=== PATIENT | male | born 1935 | race Caucasian/White ===

== ENCOUNTER → 2016-06-15 | Outpatient (CLI) | payer MEDICARE, BC | END | disposition home or self-care (01) | LOC: PCVCIMAG 13:34 | PROVIDERS: ATTEND Internal Medicine Cardiovascular Disease | DX: I65.23 Occlusion and stenosis of bilateral carotid arteries (principal); I25.10 Atherosclerotic heart disease of native coronary artery without angina pectoris; E78.4 Other hyperlipidemia; I10 Essential (primary) hypertension; I25.5 Ischemic cardiomyopathy; Z86.79 Personal history of other diseases of the circulatory system | CPT/HCPCS: 80061; 93005; 93880; G0463 ==

== ENCOUNTER → 2017-05-17 | Outpatient (CLI) | payer MEDICARE, BC | END | disposition home or self-care (01) | LOC: PCVCIMAG 13:00 | DX: I65.21 Occlusion and stenosis of right carotid artery (principal) | CPT/HCPCS: 93880 ==

== ENCOUNTER → 2018-02-02 | Outpatient (CLI) | payer MEDICARE, BC ==
--- NOTE | 2018-02-02 12:40 | PCVCIMAG ---
EXAM: BILATERAL CAROTID DUPLEX INDICATION: Carotid Occlusive Disease. FINDINGS: Doppler Measurements (centimeters per second): RIGHT: Peak CCA-72, Peak ECA-115, Diastolic ICA-21, Peak ICA-188, ICA/CCA Ratio-2.3. LEFT: Peak CCA-92, Peak ECA-132, Diastolic ICA-20, Peak ICA-118, ICA/CCA Ratio-1.2. RIGHT CAROTID: The carotid bulb has moderate plaque. The proximal internal carotid artery shows 60-70% stenosis. The common carotid artery shows no significant stenosis. The external carotid artery shows no significant stenosis. LEFT CAROTID: The carotid bulb has no significant plaque. The proximal internal carotid artery shows no significant stenosis. The common carotid artery shows no significant stenosis. The external carotid artery shows 40% stenosis. Antegrade flow in both vertebral arteries. IMPRESSION: 60-70% stenosis of the right internal carotid artery with moderate plaque. No significant stenosis of the left internal carotid artery with no significant plaque. No change since May 2017 study. LOC:[id number]
== END | disposition home or self-care (01) ==
LOC: PCVCCLINIC 11:40
PROVIDERS: ATTEND Internal Medicine Cardiovascular Disease
DX: I65.23 Occlusion and stenosis of bilateral carotid arteries (principal); I25.10 Atherosclerotic heart disease of native coronary artery without angina pectoris; I25.5 Ischemic cardiomyopathy; I48.0 Paroxysmal atrial fibrillation; I73.9 Peripheral vascular disease, unspecified; E78.49 Other hyperlipidemia; E78.00 Pure hypercholesterolemia, unspecified; F17.210 Nicotine dependence, cigarettes, uncomplicated; I10 Essential (primary) hypertension; Z79.82 Long term (current) use of aspirin
CPT/HCPCS: 36415; 80061; 93005; 93880; G0463

== ENCOUNTER → 2018-05-24 | Outpatient (CLI) | payer MEDICARE, BC ==
[~2018-05-24] MED LIST: REGADENOSON 0.4 MG/5 ML DISP.SYRIN. IV ONE
--- NOTE | 2018-05-24 12:22 | PCVCIMAG ---
APPROVED REPORT Imaging Protocol: Rest Tc-99m/Stress Tc-99m 1 day Study performed: 05/24/2018 09:43:06 Indication: CAD Patient Location: Out-Patient Stress Nurse: Aniya Gaona RN, Aniya Gaona RN PA Tech:Oneyda Brandon [facility] Ht: 5 ft 11 in Wt: 155 lbs BSA: 1.89 m2 HR: 57 bpm BP: 184/75 mmHg BMI: 21.61 Medical History Medical History: Hyperlipidemia, CAD, PVD, Current Smoker Allergies: Demerol, Clinadmycin Cardiac Risk Factors: Age Pretest Chest Pain Characteristics: No chest pain Resting Data Rest SPECT myocardial perfusion imaging was performed in supine position 45 minutes following the intravenous injection of 10.5 mCi of Tc-99m Sestamibi. Time of rest injection: 09 Date: 05/24/2018 Administration Route: IV Administration Site: Right AC Pharmacologic Stress Pharmacologic stress test was performed by injecting Regadenoson 0.4 mg IV push over 10-15 seconds immediately followed by the intravenous injection of 32.8 mCi of Tc-99m Sestamibi. Time of stress injection: 1045 Date: 05/24/2018 Administration Route: IV Administration Site: Right AC Gated Stress SPECT was performed 45 minutes after stress injection. The images were gated to evaluate regional wall motion and calculate left ventricular ejection fraction. Stress Test Details Stress Test: Pharmacologic stress testing performed using 0.4 mg of regadenoson per 5 mL given IV over 10 seconds. Reason for pharmacologic stress test: unsteady gait. HRMax Heart Rate (APMHR): 139 bpm Resting HR: 57 bpmTarget HR (85% APMHR): 118 bpm Max HR Achieved: 66 bpm % of APMHR: 47 Recovery HR: 65 bpm BP Resting BP: 184/75 mmHg Max BP: 169/73 mmHg Recovery BP: 138/62 mmHg ECG Resting ECG: Sinus Bradycardia, LVH Stress ECG: Sinus Rhythm, LVH ST Change: Nondiagnostic resting ST abnormalities Arrhythmia: None Recovery ECG: Sinus Rhythm, LVH Clinical Reason for Termination: Completed protocol Stress Symptoms: None Exercise duration: 0 min 55 sec Study Quality Study: Good Artifact: Mild Diaphragmatic artifact Study Data Post stress, the left ventricular ejection was 70%.. SSS: 0 SRS: 0 SDS: 0 TID = 0.94. Perfusion There is a mediummedium area of mildly reduced uptake in the basal and mid segment of the inferior wall which is seen on the stress images as well as the resting images. This area thickens and moves normally and is most consistent with attenuation artifact. Wall Motion Normal left ventricular wall motion. Nuclear Conclusion ECG Findings: negative for ischemia Clinical Findings: non-diagnostic Nuclear Findings: negative for ischemia Exercise Capacity: not assessed Left Ventricular Function: normal Risk Study: low This study is of low probability for inducible ischemia or prior infarct. Normal global and segmental LV systolic function. Artifact: Mild Diaphragmatic artifact
--- NOTE | 2018-05-24 18:40 | PCVCIMAG ---
EXAM: AORTOILIAC DUPLEX INDICATION: Peripheral arterial disease FINDINGS: AORTA: Suprarenal aorta measures maximum diameter of 2.2 cm. There is not a fusiform infrarenal aortic aneurysm. The infrarenal aorta measures maximum diameter of 2.4 cm. No aortic stenosis. RIGHT COMMON ILIAC ARTERY: Maximum diameter is 1.4 cm. No significant stenosis. RIGHT EXTERNAL ILIAC ARTERY: No significant stenosis. LEFT COMMON ILIAC ARTERY: Maximum diameter is 1.4 cm. No significant stenosis. LEFT EXTERNAL ILIAC ARTERY: No significant stenosis. IMPRESSION: No abdominal aortic aneurysm. No aortoiliac stenosis seen. LOC:[id number]
--- NOTE | 2018-05-24 18:42 | PCVCIMAG ---
EXAM: BILATERAL LOWER EXTREMITY ARTERIAL DUPLEX INDICATION: Peripheral Arterial Disease. Leg pain. FINDINGS: Right Leg: Satisfactory arterial waveforms throughout the common/profunda/superficial femoral, popliteal, anterior tibial, peroneal, and posterior tibial arteries. No flow limiting stenosis seen. Left Leg: Satisfactory arterial waveforms throughout the common/profunda/superficial femoral, popliteal, anterior tibial, peroneal, and posterior tibial arteries. No flow limiting stenosis seen. IMPRESSION: No flow limiting stenosis in the right lower extremity. No flow limiting stenosis in the left lower extremity. LOC:[id number]
== END | disposition home or self-care (01) ==
LOC: PCVCIMAG 09:33
PROVIDERS: ATTEND Internal Medicine Cardiovascular Disease
DX: I73.9 Peripheral vascular disease, unspecified (principal); I25.10 Atherosclerotic heart disease of native coronary artery without angina pectoris; I25.5 Ischemic cardiomyopathy; I48.0 Paroxysmal atrial fibrillation; I10 Essential (primary) hypertension
CPT/HCPCS: 78452; 93017; 93925; 93978; A9500; J2785

== ENCOUNTER → 2019-01-01 | Outpatient (CLI) | payer MEDICARE, BC | LOC: PCVCCLINIC 13:39 | PROVIDERS: ATTEND Internal Medicine Cardiovascular Disease | DX: I25.10 Atherosclerotic heart disease of native coronary artery without angina pectoris (principal); I25.5 Ischemic cardiomyopathy; I48.92 Unspecified atrial flutter; R94.31 Abnormal electrocardiogram [ECG] [EKG]; I48.0 Paroxysmal atrial fibrillation; I10 Essential (primary) hypertension; E78.00 Pure hypercholesterolemia, unspecified; I65.23 Occlusion and stenosis of bilateral carotid arteries; I73.9 Peripheral vascular disease, unspecified; Z72.0 Tobacco use; Z79.82 Long term (current) use of aspirin; Z79.899 Other long term (current) drug therapy; Z88.8 Allergy status to other drugs, medicaments and biological substances; Z88.1 Allergy status to other antibiotic agents; Z87.19 Personal history of other diseases of the digestive system; Z90.49 Acquired absence of other specified parts of digestive tract; Z82.49 Family history of ischemic heart disease and other diseases of the circulatory system | CPT/HCPCS: 36415; 80061; 93005; G0463 ==